=== PATIENT | female | born 1965 | race Caucasian/White ===

== ENCOUNTER 2017-11-13 15:13 | Day surgery (SDC) | payer SELFPAY ==
[2017-11-13] MEDS ORDERED: Lidocaine 1% PF 5 ML VIAL ONE (15:24)
[2017-11-13] MEDS ORDERED: Ketorolac Tromethamine 30 MG/ML VIAL ONE (15:24)
[2017-11-13] MEDS ORDERED: Glycopyrrolate 0.2 MG/ML 5 ML SYRINGE ONE (15:24)
[2017-11-13] MEDS ORDERED: PHENYLEPHRINE-NS 100 MCG/ML 10 ML SYRINGE ONE (15:24)
[2017-11-13] MEDS ORDERED: Dexamethasone 20 MG/5 ML VIAL ONE (15:24)
[2017-11-13] MEDS ORDERED: PROPOFOL 200 MG/20 ML VIAL ONE (15:24)
[2017-11-13] MEDS ORDERED: Ondansetron HCl/PF 4 MG/2 ML Vial ONE ×2 (15:24→22:25)
--- NOTE | 2017-11-13 16:41 | ULT ---
RIGHT UPPER QUADRANT ULTRASOUND: 11/13/17 HISTORY: Right upper quadrant pain. FINDINGS: The liver demonstrates a homogeneous echotexture without focal mass or intrahepatic ductal dilatation . Large mobile 2 cm shadowing gallstone is present. No gallbladder wall thickening or pericholecystic fluid is identified. The common duct measures 4 mm in diameter. The pancreas is not well visualized due to overlying bowel gas. The right kidney is normal. No free fluid is seen in Batres's pouch. IMPRESSION: Cholelithiasis. POS: SHEREEH
[2017-11-13] MEDS ORDERED: Dextrose 50% Abboject 50 ML SYRINGE SLOW IVP PRN (17:11)
[2017-11-13] MEDS ORDERED: Ondansetron ODT 4 MG TAB PO PRN (17:11)
[2017-11-13] MEDS ORDERED: Dextrose 5% in Water 1,000 ML IV PRN (17:11)
[2017-11-13] MEDS ORDERED: Ondansetron HCl/PF 4 MG/2 ML Vial IVP PRN ×2 (17:11→21:20)
[2017-11-13] MEDS ORDERED: hydrALAZINE 20 MG/ML VIAL SLOW IVP PRN (17:14)
[2017-11-13] MEDS ORDERED: Sodium Chloride 0.9% 1,000 ML IV SCH (17:15)
[2017-11-13] MEDS ORDERED: diphenhydrAMINE 25 MG CAP PO PRN (17:23)
--- NOTE | 2017-11-13 18:20 | HP ---
DATE OF ADMISSION: 11/13/2017 HISTORY OF PRESENT ILLNESS: This is a 52-year-old woman who was seen at [facility]. The patient presented with insidious onset sharp epigastric to right upper quadrant abdominal pain, which was rated at 10/10 in onset. The pain started approximately 0800 hours. Last meal was dinner last night, consisting of some chicken dumplings. The patient reports abdominal bloating over the last several days associated with frequent flatulence. She denies any nausea or vomiting. She reported the pain radiated to her back. She denies any previous abdominal pain. PAST MEDICAL HISTORY: Pertinent for hypothyroidism, essential hypertension, hyperlipidemia, chronic depression and COPD. SURGICAL HISTORY: Pertinent for x3 as well as total abdominal hysterectomy. SOCIAL HISTORY: She lives independently. She admits to smoking 2 packs of cigarettes per day and has done so for over 20 years. She also reports occasional intake of ethanol in moderate amount. FAMILY HISTORY: Notable for essential hypertension. She denies any family history of heart disease, cancer or diabetes mellitus. PREHOSPITALIZATION MEDICATIONS: Include Zoloft 50 mg p.o. daily, levothyroxine 200 mg p.o. daily, hydrochlorothiazide 12.5 mg p.o. daily and Lipitor 20 mg p.o. daily. ALLERGIES: To SULFA DRUGS. REVIEW OF SYSTEMS: A 10-point review of systems is essentially unremarkable except for as stated in the past medical history and chief complaint. PHYSICAL EXAMINATION: GENERAL: This reveals a 52-year-old normally developed woman who is otherwise coherent and interactive and appears stated age. The patient is alert and oriented x3. She appears to be in no acute distress at the time of my evaluation. VITAL SIGNS: Currently includes blood pressure 158/110, pulse is 81, respiratory rate is 19, temperature is 98.8 degrees Fahrenheit, oxygen saturation is 95% on room air. HEENT: Reveals normocephalic and atraumatic. Pupils are equal, round and reactive to light and accommodation. Extraocular muscles are intact bilaterally. She has no sclerae icterus present. Oral mucosa is pink and moist. No lesions are noted. NECK: Supple. No palpable lymphadenopathy or thyromegaly present. HEART: Reveals regular rate and rhythm. No murmurs or gallops auscultated. LUNGS: Clear to auscultation bilaterally. Her breathing is regular and unlabored. ABDOMEN: Soft with right upper quadrant and epigastric abdominal tenderness to palpation. Liver and spleen are nonpalpable below costal margins. EXTREMITIES: There are 2+ radial and pedal pulses bilaterally. No ankle edema is present. NEUROLOGIC: Reveals no focal deficits present. PERTINENT LABORATORY DATA: Today includes a CBC with 15,700 white blood cells, hemoglobin and hematocrit of 14.0 and 41.2 respectively. Platelet count is 327, 000. Metabolic profile, sodium 138, potassium is 4.4, chloride is 103, bicarbonate is 27, BUN 11, creatinine is 0.92, glucose is 122. PTT and INR as well as LFTs have been ordered, results pending at the time of this dictation. IMAGING: I have personally reviewed the abdominal ultrasound, which is remarkable for solitary intraluminal gallstone. There is minimal gallbladder wall thickening. Common bile duct is normal in diameter for this patient's age at 4 mm in diameter. There is no pericholecystic fluid present. IMPRESSION: 1. Acute cholecystitis with cholelithiasis. 2. History of chronic obstructive pulmonary disease. 3. History of chronic depression. 4. History of essential hypertension. PLAN: Laparoscopic cholecystectomy. If the LFTs indicate acute transaminitis, we will give consideration to intraoperative cholangiography. Both findings and plan have been discussed with the patient in the presence of elderly mother. I advised the patient of the risk and benefits of the proposed surgery. Risks include, but not limited to bleeding, infection, injury to bile duct or surrounding structures. The patient and her mother have indicated understanding of information given. I have also answered all their questions. The patient has given consent for this admission and surgical intervention. SMILEY
[2017-11-13] MEDS ORDERED: CEFAZOLIN/Water 2 GM/20 ML SYRINGE ONE (18:26)
[2017-11-13] MEDS ORDERED: Midazolam HCl 2 mg/2 ml Vial ONE (18:47)
[2017-11-13] MEDS ORDERED: Bupivacaine/Epinephrine 0.25% 30 ML VIAL ONE (18:52)
[2017-11-13 19:02] LABS: ALT (SGPT) 14 U/L (8-55); AST (SGOT) 20 U/L (5-34); Albumin 4.1 g/dL (3.5-5.0); Alkaline Phosphatase 98 U/L (40-150); Anion Gap 13 mmol/L (10-20); BUN (Urea Nitrogen) 10 mg/dL (9.8-20.1); Bilirubin, Total 0.5 mg/dL (0.2-1.2); Calc. Creatinine Clearance 0 mL/min (70-130); Calcium 9.8 mg/dL (7.8-10.44); Carbon Dioxide 25 mmol/L (22-29); Chloride 105 mmol/L (98-107); Estimated GFR-MDRD 58; Globulin 3.8 g/dL (2.4-3.5); Glucose 111 mg/dL (70-105); Potassium 4.1 mmol/L (3.5-5.1); Protein, Total 7.9 g/dL (6.0-8.3); Sodium 139 mmol/L (136-145)
[2017-11-13] MEDS ORDERED: Fentanyl 250 MCG/5 ML VIAL ONE (19:34)
[2017-11-13] MEDS ORDERED: Atorvastatin Calcium 20 MG TAB PO SCH (21:00)
[2017-11-13] MEDS ORDERED: Promethazine HCl 25 MG/ML VIAL SLOW IVP PRN (21:20)
[2017-11-13] MEDS ORDERED: Promethazine HCl 25 MG/ML VIAL IM PRN (21:20)
[2017-11-13] MEDS ORDERED: hydrALAZINE 20 MG/ML VIAL ONE (21:37)
[2017-11-13] MEDS ORDERED: Fentanyl 100 MCG/2 ML VIAL ONE (21:47)
[2017-11-13] MEDS ORDERED: Sodium Chloride 0.9% 10 ML ONE (22:27)
--- NOTE | 2017-11-13 23:08 | OP ---
DATE OF OPERATION: 11/13/2017 PREOPERATIVE DIAGNOSIS: Acute cholecystitis with cholelithiasis. POSTOPERATIVE DIAGNOSIS: Acute cholecystitis with cholelithiasis. PROCEDURES PERFORMED: Laparoscopic cholecystectomy. SURGEON: Genaro Graza D.O. ANESTHESIA: General endotracheal. ESTIMATED BLOOD LOSS: 10 mL. FLUIDS GIVEN: 500 mL crystalloids. SPONGE AND INSTRUMENT COUNT: Certified as correct x2. COMPLICATIONS: None apparent at the time of operation. INDICATIONS FOR PROCEDURE: This is a 52-year-old woman who presented with acute onset epigastric to right upper quadrant abdominal pain, which woke her up this morning. Clinical and radiographic exami nation was consistent with acute cholecystitis with cholelithiasis, for which patient was brought to the operating room for cholecystectomy. Findings are consistent with gallbladder in the usual anatomic location partially encased by omental adhesions. DESCRIPTION OF PROCEDURE: Informed consent obtained from the patient who was brought to the operatin g room and placed in supine position. Following general anesthesia, the abdomen is sterilely prepped and draped in usual fashion. A skin below the umbilicus was infiltrated with 0.25% Marcaine with ep inephrine. Small curvilinear infraumbilical incision is made using 11 scalpel. Umbilical stalk was grasped with Kathy's and elevated. Veress needle was inserted through the incision, placed in the p eritoneal cavity through which the abdomen was insufflated with 3 liters of CO2 gas. Intraabdominal pressure was noted at 1 mmHg. Following abdominal insufflation, Veress needle was removed and a 5 mm trocar introduced using a Visiport under laparoscopy. Laparoscopy confirmed proper placement of the port, no injuries to underlying structures. Additional laparoscopy reveals gallbladder in the usual anatomic location partially encased by omental adhesions. Under direct laparoscopy, a 12 mm epigast milvia and two 5 mm right lateral subcostal ports were placed after the overlying skin was infiltrated w ith 0.25% Marcaine with epinephrine and appropriate incisions made. Patient was placed in a reverse Trendelenburg position, rotated to her left. I then introduced [place] dissector with cautery to ta ke down omental adhesions. Prestige grasper introduced through the right lateral subcostal port gras ping the fundus of the gallbladder which was elevated cephalad. A second Prestige grasper was introd uced through the right medial subcostal port grasping the Stearns's pouch, which was retracted latera lly. An anterior coursing cystic artery was dissected free from surrounding structures and divided b etween clips. Cystic duct was then dissected free from surrounding structures and divided between cl ips in a similar fashion. Gallbladder was removed from the liver bed using cautery with good hemosta sis. Gallbladder was then delivered of the abdominal cavity using an EndoCatch. Operative site was irrigated with saline. Good hemostasis is noted in place. Finding no other pathology, laparoscopy w as terminated. Fascia of the epigastric port was closed using 0 Vicryl suture and Endo closure devic e under laparoscopy. The abdomen was desufflated. All ports and instruments removed and accounted f or. Skin incisions were closed using 4-0 Monocryl suture in subcuticular fashion. Dermabond was tonie lied over the incisional closure. Patient tolerated the operation without any apparent complication and was returned to recovery room in satisfactory condition.
[2017-11-14] MEDS ORDERED: Levothyroxine Sodium 100 MCG TAB PO SCH (06:00)
[2017-11-14] MEDS ORDERED: Hydrochlorothiazide 25 MG TAB PO SCH (09:00)
== END 2017-11-13 22:55 | disposition home or self-care (01) ==
LOC: ERS 15:13 → SDC 18:27
PROVIDERS: ATTEND Surgery
PROC: 0FT44ZZ Resection of Gallbladder, Percutaneous Endoscopic Approach (ICD-10-PCS; principal; 2017-11-13)
DX: K81.2 Acute cholecystitis with chronic cholecystitis (principal); E78.5 Hyperlipidemia, unspecified; I10 Essential (primary) hypertension; J44.9 Chronic obstructive pulmonary disease, unspecified; F32.9 Major depressive disorder, single episode, unspecified; F17.210 Nicotine dependence, cigarettes, uncomplicated; Z88.2 Allergy status to sulfonamides; Z79.899 Other long term (current) drug therapy
CPT/HCPCS: 36415; 76705; 85610; 85730; 86850; 86870; 86900; 86901; 86922; 88304; 96374; 96375; A4216; J0360; J1100; J1885; J2001; J2250; J2405; J2704; J3010; J7620

== ENCOUNTER 2021-11-24 01:30 | Inpatient (IN) | payer SELFPAY ==
[2021-11-24] MEDS ORDERED: Ondansetron PF 4 MG/2 ML Vial ONE (02:26)
[2021-11-24] MEDS ORDERED: Morphine 4 MG/ML VIAL ONE (02:26)
[2021-11-24 02:28] LABS: #Basophils 0.1 thou/uL (0.0-0.2); #Eosinphils 0.1 thou/uL (0.0-0.7); #Lymphocytes 1.8 thou/uL (1.20-3.40); #Monocytes 0.6 thou/uL (0.11-0.59); %Basophils 0.4 % (0.0-1.0); %Eosinophils 0.3 % (0.0-10.0); %Lymphocytes 10.8 % (21.0-51.0); %Monocytes 3.7 % (0.0-10.0); %Neutrophils 84.8 % (42.0-75.0); Hemoglobin 13.9 g/dL (12.0-16.0); Mean Corpuscular HGB CONC 33.9 g/dL (32.0-36.0); Mean Corpuscular Hemoglobin 33.8 pg (27.0-31.0); Mean Corpuscular Volume 99.6 fL (78.0-98.0); Mean Platelet Volume 7.4 fL (7.4-10.4); Platelet Count 303 thou/uL (130-400); RBC Distribution Width 11.8 % (11.5-14.5); White Blood Cell (WBC) Count 16.6 thou/uL (4.8-10.8)
[2021-11-24 02:54] LABS: ALT (SGPT) 9 U/L (8-55); AST (SGOT) 15 U/L (5-34); Albumin 4.2 g/dL (3.5-5.0); Alkaline Phosphatase 107 U/L (40-110); Anion Gap 14 mmol/L (10-20); BUN (Urea Nitrogen) 13 mg/dL (9.8-20.1); Bilirubin, Total 0.3 mg/dL (0.2-1.2); Calc. Creatinine Clearance 0 mL/min (70-130); Calcium 9.9 mg/dL (7.8-10.44); Carbon Dioxide 26 mmol/L (22-29); Chloride 101 mmol/L (98-107); Estimated GFR 78; Globulin 3.5 g/dL (2.4-3.5); Glucose 151 mg/dL (70-105); Lipase 23 U/L (8-78); Potassium 3.7 mmol/L (3.5-5.1); Protein, Total 7.7 g/dL (6.0-8.3); Sodium 137 mmol/L (136-145)
[2021-11-24] MEDS ORDERED: Calcium Carbonate 500 MG ChewTAB PO PRN (03:18)
[2021-11-24] MEDS ORDERED: Ondansetron ODT 4 MG TAB PO PRN (03:18)
[2021-11-24] MEDS ORDERED: Senokot S 8.6-50 MG TAB PO PRN (03:18)
[2021-11-24] MEDS ORDERED: Acetaminophen 325 MG TAB PO PRN (03:18)
[2021-11-24] MEDS ORDERED: Ondansetron PF 4 MG/2 ML Vial IVP PRN (03:18)
[2021-11-24 03:21] LABS: CKMB 7.5 ng/mL (0-6.6)
[2021-11-24] MEDS ORDERED: Morphine 2 MG/ML VIAL SLOW IVP PRN (03:24)
[2021-11-24] MEDS ORDERED: Benzonatate 100 MG CAP PO PRN (03:50)
[2021-11-24] MEDS ORDERED: hydrALAZINE 20 MG/ML VIAL SLOW IVP PRN ×2 (04:02→08:18)
[2021-11-24] MEDS ORDERED: Enoxaparin Sodium 80 MG/0.8 ML SYRINGE ONE ×2 (04:08→10:46)
[2021-11-24] MEDS ORDERED: Mag-Al Plus 1200 MG/1200 MG/120 MG/30 ML UDCUP PO PRN (04:46)
[2021-11-24] MEDS: Levothyroxine Sodium 125 MCG TAB PO SCH (06:42)
[2021-11-24] MEDS: Nicotine 21 MG PATCH TD SCH (06:44)
[2021-11-24 07:01] LABS: #Lymphocytes 1.9 thou/uL (1.20-3.40); #Monocytes 0.5 thou/uL (0.11-0.59); #Neutrophils 9.8 thou/uL (1.40-6.50); %Basophils 0.3 % (0.0-1.0); %Eosinophils 0.3 % (0.0-10.0); %Lymphocytes 15.1 % (21.0-51.0); %Monocytes 3.9 % (0.0-10.0); %Neutrophils 80.3 % (42.0-75.0); Hemoglobin 12.8 g/dL (12.0-16.0); Mean Corpuscular HGB CONC 32.5 g/dL (32.0-36.0); Mean Corpuscular Hemoglobin 32.2 pg (27.0-31.0); Mean Corpuscular Volume 99.2 fL (78.0-98.0); Mean Platelet Volume 7.5 fL (7.4-10.4); Platelet Count 314 thou/uL (130-400); RBC Distribution Width 11.8 % (11.5-14.5); Red Blood Cell (RBC) Count 3.98 mill/uL (4.20-5.40); White Blood Cell (WBC) Count 12.2 thou/uL (4.8-10.8)
[2021-11-24 07:10] LABS: Hemoglobin A1c 4.9 % (4.0-6.0)
[2021-11-24 07:24] LABS: ALT (SGPT) 10 U/L (8-55); AST (SGOT) 33 U/L (5-34); Albumin 3.9 g/dL (3.5-5.0); Alkaline Phosphatase 102 U/L (40-110); Anion Gap 12 mmol/L (10-20); BUN (Urea Nitrogen) 13 mg/dL (9.8-20.1); Bilirubin, Total 0.4 mg/dL (0.2-1.2); Calc. Creatinine Clearance 0 mL/min (70-130); Calcium 9.8 mg/dL (7.8-10.44); Carbon Dioxide 25 mmol/L (22-29); Cardiac Risk 3.4 (Less than 4.5); Chloride 103 mmol/L (98-107); Cholesterol 173 mg/dl (< 200 Desired); Estimated GFR 85; Globulin 3.3 g/dL (2.4-3.5); Glucose 127 mg/dL (70-105); HDL Cholesterol 51 mg/dL (>60 Neg Risk); LDL Cholesterol, Calculated 107 mg/dL; Potassium 3.9 mmol/L (3.5-5.1); Protein, Total 7.2 g/dL (6.0-8.3); Sodium 136 mmol/L (136-145); Triglycerides 77 mg/dL (Less than 150)
[2021-11-24 07:38] LABS: Troponin I 2.198 ng/mL (< 0.028)
[2021-11-24] MEDS ORDERED: Magnesium 2 GM/50 ML BAG (IN WATER) ONE (07:51)
[2021-11-24] MEDS ORDERED: Nitroglycerin 50 MG/250 ML BOT 250 ML IVPB SCH ×3 (08:00→09:45)
[2021-11-24] MEDS ORDERED: Magnesium 2 GM/50 ML(in water) 2 GM in Premix Bag 1 BAG IVPB SCH (08:00)
[2021-11-24] MEDS ORDERED: Nitroglycerin 2% Ointment 1 INCH/1 GM Packet ONE (08:06)
[2021-11-24] MEDS ORDERED: Nitroglycerin 50 MG/250 ML BOT 250 ML ONE (08:16)
[2021-11-24] MEDS ORDERED: Labetalol HCl 100 MG/20 ML VIAL SLOW IVP PRN (08:18)
[2021-11-24] MEDS ORDERED: Moisturizing Cream (Eucerin) 113 GM JAR TOP PRN (08:18)
[2021-11-24] MEDS ORDERED: Artificial Tear Sol 15 ML BOT EA EYE PRN (08:18)
[2021-11-24] MEDS ORDERED: Nitroglycerin 2% Ointment 1 INCH/1 GM Packet TOP SCH (09:00)
[2021-11-24 09:29] LABS: SARS-CoV-2 NAA Rapid Test Not Detected (NotDetected)
[2021-11-24 09:53] VITALS: BMI 29.9
[2021-11-24] MEDS ORDERED: Enoxaparin Sodium 80 MG/0.8 ML SYRINGE SC SCH ×3 (10:00→21:00)
[2021-11-24] MEDS ORDERED: Aspirin Chewable 81 MG TAB ONE ×2 (10:04→18:40)
[2021-11-24] MEDS ORDERED: Lisinopril 10 MG TAB ONE (10:04)
[2021-11-24] MEDS ORDERED: Metoprolol Tartrate 25 MG TAB ONE (10:05)
[2021-11-24] MEDS: Metoprolol Tartrate 25 MG TAB PO SCH ×2 (10:43→20:15)
[2021-11-24] MEDS: Lisinopril 5 MG TAB PO SCH (10:43)
[2021-11-24] MEDS: Aspirin 81 mg Enteric Coated Tablet PO SCH (10:43)
[2021-11-24 12:39] LABS: Troponin I 9.885 ng/mL (< 0.028)
[2021-11-24] MEDS ORDERED: Iopamidol 370 76% 100 ML VIAL ONE (13:28)
[2021-11-24] MEDS: Nitroglycerin 2% Ointment 1 INCH/1 GM Packet TOP SCH ×2 (14:58→20:15)
[2021-11-24] MEDS: FLU VACC QS2022-23(6MOS UP)/PF 60 MCG/0.5 ML SYRINGE IM ONE (15:01)
[2021-11-24 16:38] LABS: Troponin I 16.307 ng/mL (< 0.028)
[2021-11-24] MEDS ORDERED: Lidocaine 1% (PF) 30 ML VIAL ONE (17:04)
[2021-11-24] MEDS ORDERED: Heparin 10,000 UNITS/ 10 ML VIAL ONE (17:04)
[2021-11-24] MEDS ORDERED: Fentanyl 100 MCG/2 ML VIAL ONE (17:27)
[2021-11-24] MEDS ORDERED: Midazolam HCl 2 mg/2 ml Vial ONE (17:27)
[2021-11-24] MEDS ORDERED: Nitroglycerin 100MG/250ML BOT 250 ML ONE (17:51)
[2021-11-24] MEDS ORDERED: TICAGRELOR 90 MG TABLET ONE (18:00)
[2021-11-24] MEDS ORDERED: Lorazepam 2 MG/ML VIAL SLOW IVP PRN (19:53)
[2021-11-24] MEDS ORDERED: Lorazepam 0.5 MG TAB PO PRN (20:03)
[2021-11-24] MEDS: TICAGRELOR 90 MG TABLET PO SCH (20:14)
[2021-11-24] MEDS: Atorvastatin Calcium 40 MG TAB PO SCH (20:14)
[2021-11-24] MEDS ORDERED: Atorvastatin Calcium 40 MG TAB PO SCH ×2 (21:00)
[2021-11-24 21:52] LABS: Troponin I 88.413 ng/mL (< 0.028)
[2021-11-25 04:15] LABS: #Basophils 0.1 thou/uL (0.0-0.2); #Eosinphils 0.1 thou/uL (0.0-0.7); #Lymphocytes 2.2 thou/uL (1.20-3.40); #Monocytes 0.7 thou/uL (0.11-0.59); #Neutrophils 11.1 thou/uL (1.40-6.50); %Basophils 0.4 % (0.0-1.0); %Eosinophils 0.4 % (0.0-10.0); %Lymphocytes 15.7 % (21.0-51.0); %Monocytes 5.1 % (0.0-10.0); %Neutrophils 78.3 % (42.0-75.0); Hemoglobin 12.4 g/dL (12.0-16.0); Mean Corpuscular HGB CONC 34.7 g/dL (32.0-36.0); Mean Corpuscular Hemoglobin 34.3 pg (27.0-31.0); Mean Corpuscular Volume 98.9 fL (78.0-98.0); Mean Platelet Volume 7.7 fL (7.4-10.4); Platelet Count 276 thou/uL (130-400); RBC Distribution Width 11.7 % (11.5-14.5); Red Blood Cell (RBC) Count 3.61 mill/uL (4.20-5.40); White Blood Cell (WBC) Count 14.1 thou/uL (4.8-10.8)
[2021-11-25 04:31] LABS: ALT (SGPT) 21 U/L (8-55); AST (SGOT) 142 U/L (5-34); Albumin 3.5 g/dL (3.5-5.0); Alkaline Phosphatase 87 U/L (40-110); Anion Gap 14 mmol/L (10-20); BUN (Urea Nitrogen) 13 mg/dL (9.8-20.1); Bilirubin, Total 0.7 mg/dL (0.2-1.2); Calc. Creatinine Clearance 94 mL/min (70-130); Calcium 8.9 mg/dL (7.8-10.44); Carbon Dioxide 24 mmol/L (22-29); Chloride 104 mmol/L (98-107); Estimated GFR 83; Globulin 3.2 g/dL (2.4-3.5); Glucose 102 mg/dL (70-105); Potassium 3.6 mmol/L (3.5-5.1); Protein, Total 6.7 g/dL (6.0-8.3); Sodium 138 mmol/L (136-145)
[2021-11-25] MEDS: Nitroglycerin 2% Ointment 1 INCH/1 GM Packet TOP SCH (05:43)
[2021-11-25] MEDS: Levothyroxine Sodium 125 MCG TAB PO SCH (05:43)
[2021-11-25] MEDS: Nicotine 21 MG PATCH TD SCH (05:45)
[2021-11-25] MEDS ORDERED: Sodium Chloride 0.9% 1,000 ML IV SCH (07:45)
[2021-11-25] MEDS: TICAGRELOR 90 MG TABLET PO SCH ×2 (08:37→21:13)
[2021-11-25] MEDS: Metoprolol Tartrate 25 MG TAB PO SCH ×2 (08:37→21:12)
[2021-11-25] MEDS: Lisinopril 5 MG TAB PO SCH (08:37)
[2021-11-25] MEDS: Aspirin 81 mg Enteric Coated Tablet PO SCH (08:37)
[2021-11-25] MEDS: Atorvastatin Calcium 40 MG TAB PO SCH (21:12)
[2021-11-26 05:16] LABS: #Basophils 0.1 thou/uL (0.0-0.2); #Eosinphils 0.1 thou/uL (0.0-0.7); #Lymphocytes 2.3 thou/uL (1.20-3.40); #Monocytes 0.7 thou/uL (0.11-0.59); #Neutrophils 6.6 thou/uL (1.40-6.50); %Basophils 0.6 % (0.0-1.0); %Eosinophils 1.4 % (0.0-10.0); %Lymphocytes 23.2 % (21.0-51.0); %Monocytes 7.5 % (0.0-10.0); %Neutrophils 67.4 % (42.0-75.0); Hemoglobin 11.4 g/dL (12.0-16.0); Mean Corpuscular HGB CONC 33.1 g/dL (32.0-36.0); Mean Corpuscular Hemoglobin 33.3 pg (27.0-31.0); Mean Platelet Volume 8.1 fL (7.4-10.4); Platelet Count 230 thou/uL (130-400); RBC Distribution Width 11.8 % (11.5-14.5); Red Blood Cell (RBC) Count 3.42 mill/uL (4.20-5.40); White Blood Cell (WBC) Count 9.8 thou/uL (4.8-10.8)
[2021-11-26] MEDS: Nicotine 21 MG PATCH TD SCH (05:20)
[2021-11-26] MEDS: Levothyroxine Sodium 125 MCG TAB PO SCH (05:20)
[2021-11-26 05:31] LABS: Anion Gap 13 mmol/L (10-20); BUN (Urea Nitrogen) 14 mg/dL (9.8-20.1); Calc. Creatinine Clearance 91 mL/min (70-130); Calcium 8.6 mg/dL (7.8-10.44); Carbon Dioxide 23 mmol/L (22-29); Chloride 107 mmol/L (98-107); Estimated GFR 81; Glucose 90 mg/dL (70-105); Potassium 3.8 mmol/L (3.5-5.1); Sodium 139 mmol/L (136-145)
[2021-11-26] MEDS ORDERED: Clopidogrel Bisulfate 300 MG TAB PO SCH (07:45)
[2021-11-26] MEDS: Aspirin 81 mg Enteric Coated Tablet PO SCH (09:38)
[2021-11-26] MEDS: Metoprolol Tartrate 25 MG TAB PO SCH ×2 (09:38→21:26)
[2021-11-26] MEDS: Atorvastatin Calcium 40 MG TAB PO SCH (21:25)
[2021-11-27] MEDS: Levothyroxine Sodium 125 MCG TAB PO SCH (05:31)
[2021-11-27] MEDS: Nicotine 21 MG PATCH TD SCH (05:31)
[2021-11-27] MEDS: FLU VACC QS2022-23(6MOS UP)/PF 60 MCG/0.5 ML SYRINGE IM ONE (06:56)
[2021-11-27 08:36] VITALS: TEMP 98.1
[2021-11-27] MEDS ORDERED: Clopidogrel Bisulfate 75 MG TAB PO SCH (09:00)
[2021-11-27] MEDS: Metoprolol Tartrate 25 MG TAB PO SCH (09:59)
[2021-11-27] MEDS: Aspirin 81 mg Enteric Coated Tablet PO SCH (09:59)
[2021-11-27 11:23] VITALS: BP 118/55
[2021-11-27] MEDS ORDERED: Atorvastatin Calcium 40 MG TAB PO SCH (21:00)
== END 2021-11-27 17:15 | disposition home or self-care (01) | DRG 247 ==
LOC: ERS 01:30 → SUATTDRO 01:30 → ERHOLD 03:26 → CCU 13:53 → 2NO 11-25 16:32
PROVIDERS: ADMIT Internal Medicine; ATTEND Internal Medicine
PROC: 027034Z Dilation of Coronary Artery, One Artery with Drug-eluting Intraluminal Device, Percutaneous Approach (ICD-10-PCS; principal; 2021-11-24)
PROC: 4A023N7 Measurement of Cardiac Sampling and Pressure, Left Heart, Percutaneous Approach (ICD-10-PCS; 2021-11-24)
PROC: B2111ZZ Fluoroscopy of Multiple Coronary Arteries using Low Osmolar Contrast (ICD-10-PCS; 2021-11-24)
PROC: B2151ZZ Fluoroscopy of Left Heart using Low Osmolar Contrast (ICD-10-PCS; 2021-11-24)
DX: I21.4 Non-ST elevation (NSTEMI) myocardial infarction (principal); E03.9 Hypothyroidism, unspecified; J44.9 Chronic obstructive pulmonary disease, unspecified; I10 Essential (primary) hypertension; F17.210 Nicotine dependence, cigarettes, uncomplicated; D72.829 Elevated white blood cell count, unspecified; K21.9 Gastro-esophageal reflux disease without esophagitis; E78.5 Hyperlipidemia, unspecified; E78.00 Pure hypercholesterolemia, unspecified; F31.9 Bipolar disorder, unspecified; Z20.822 Contact with and (suspected) exposure to COVID-19; F41.9 Anxiety disorder, unspecified; Z88.2 Allergy status to sulfonamides; Z90.49 Acquired absence of other specified parts of digestive tract; Z90.710 Acquired absence of both cervix and uterus
CPT/HCPCS: 36415; 71045; 80048; 80053; 80061; 82553; 83036; 83690; 83880; 84145; 84484; 85025; 85347; 90471; 90686; 92928; 93005; 93010; 93306; 93454; 93798; 96372; 96374; 96375; C1769; C1874; C1887; C9600; G0008; J1644; J1650; J2001; J2250; J2270; J2405; J3010; J3475; J7050; Q9967; U0002